=== PATIENT | female | born 1945 | race American Indian/Alaskan Native ===

== ENCOUNTER 2017-03-26 09:56 | Outpatient (CLI) | payer MEDICARE ==
--- NOTE | 2017-03-26 10:18 | XRay Report ---
LEFT ANKLE RADIOGRAPHS INDICATION: Ankle pain. COMPARISON: None similar at this institution. FINDINGS: AP, lateral and oblique left ankle radiographs demonstrate mild ankle soft tissue swelling, more so laterally. Subtle distal fibular metadiaphyseal oblique lucencies on one of the views questionably projectional, though not entirely excluded for subtle nondisplaced fractures extending to the distal tibiofibular joint, though some trabeculae within this region may be present without definite cortical offset. Intact malleoli and talar dome contour, to the extent assessed. Moderate plantar calcaneal spur. Demineralized bones. CONCLUSION: Left ankle soft tissue swelling suspected laterally with questionable nondisplaced distal fibular fracture versus projectional, as described. Directed clinical correlation recommended. Thank you for the opportunity to participate in this patient's care.
== END 2017-03-26 09:57 | disposition home or self-care (01) ==
LOC: SPVIMAG 09:56
PROVIDERS: ATTEND Orthopaedic Surgery
DX: M77.32 Calcaneal spur, left foot (principal)